=== PATIENT | female | born 1960 | race African-American/Black ===

== ENCOUNTER 2016-12-24 11:57 | Emergency (ER) | payer MEDICARE, OTHER ==
[~2016-12-24] VITALS: Ht 152.4 cm; Wt 72.6 kg
[~2016-12-24 11:57] MED LIST: GABA600T2 PO; HYDR-2762 PO; INSU100I13 SQ; INSU100I17 SQ; LORA10TA3 PO; METF10002 PO; METO50TA2 PO; PRAV20TA2 PO; PROAIR HFA8.5 GM INH; TRAM50TA PO; VENTOLIN HFA18 GM INH
[2016-12-24 12:40] VITALS: BP 158/114
[2016-12-24] MEDS ORDERED: DIPHTH,PERTUSS(ACELL),TET TOX 0.5 ML DISP.SYRIN. VAX IM ONE (13:00)
[2016-12-24] MEDS ORDERED: CEPH-264 PO (13:05)
--- NOTE | 2016-12-24 13:05 | PHYS DOC ---
Past Medical History Past Medical History: Asthma, Diabetes-Type II, High Cholesterol, Hypertension Past Surgical History: Alcohol Use: None Drug Use: None Adult General Chief Complaint Chief Complaint: LACERATION/AVULSION HPI HPI Patient is a 56 year old female presents emergency department stating that she had cut her right great toe on a piece of metal while getting into the truck yesterday. Patient states she had her shoe on and it cut through the shoe. She states that it did bleed a little bit of the time. There is no bleeding at this time. There is no drainage or discharge. The laceration appears very superficial that it was almost difficulty to find the area. Patient states she is having some numbness in her toe. Patient does states she is an insulin- dependent diabetic. She denies any history of neuropathy at this time. Patient states she has not taken anything for pain and discomfort. She is unsure when her last tetanus immunization occurred. Review of Systems Review of Systems Constitutional: Denies fever or chills [] Eyes: Denies change in visual acuity, redness, or eye pain [] HENT: Denies nasal congestion or sore throat [] Respiratory: Denies cough or shortness of breath [] Cardiovascular: No additional information not addressed in HPI [] GI: Denies abdominal pain, nausea, vomiting, bloody stools or diarrhea [] : Denies dysuria or hematuria [] Musculoskeletal: Denies back pain or joint pain [] Integument: Denies rash or skin lesions. Cut the right great toe Neurologic: Denies headache, focal weakness or sensory changes [] Current Medications Current Medications Current Medications Medications (Trade) Dose Ordered Sig/Palmer Start Time Stop Time Status Last Admin Dose Admin Diphtheria/ Tetanus/Acell Pertussis (Boostrix) 0.5 ml ONCE ONCE 12/24/16 13:00 12/24/16 13:01 Allergies Allergies Allergies Coded Allergies Type Severity Reaction Last Updated Verified ibuprofen Allergy Intermediate rash 01/25/15 Yes Physical Exam Physical Exam Constitutional: Well developed, well nourished, no acute distress, non-toxic appearance. [] HENT: Normocephalic, atraumatic, bilateral external ears normal, oropharynx moist, no oral exudates, nose normal. [] Eyes: PERRLA, EOMI, conjunctiva normal, no discharge. [] Neck: Normal range of motion, no tenderness, supple, no stridor. [] Cardiovascular:Heart rate regular rhythm, no murmur [] Lungs & Thorax: Bilateral breath sounds clear to auscultation [] Skin: Warm, dry, no erythema, no rash. Patient with very superficial abrasion to the right lateral great toe. No drainage or discharge noted. Patient with good sensation. Cap refill brisk less than 2 seconds. Back: No tenderness Extremities: No tenderness, no cyanosis, no clubbing, ROM intact, no edema. [] Neurologic: Alert and oriented X 3, normal motor function, normal sensory function, no focal deficits noted. [] Psychologic: Affect normal, judgement normal, mood normal. [] EKG EKG [] Radiology/Procedures Radiology/Procedures [] Course & Med Decision Making Course & Med Decision Making Pertinent Labs and Imaging studies reviewed. (See chart for details) Patient was instructed to use soap and water to clean the area and apply antibiotic ointment as needed. Also recommended ice packs elevation as much as possible. Patient will be placed on some Keflex. Recommended following up with a primary care physician in the next 3-5 days. Also provided patient with information on diabetic foot care. Patient will be discharged home in stable condition since symptoms to return back to emergency department was also provided. Patient's tetanus immunization was updated here as well. Patient agrees with discharge instructions treatment regimens and follow-up recommendations. [] Dragon Disclaimer Dragon Disclaimer This electronic medical record was generated, in whole or in part, using a voice recognition dictation system. Departure Departure Impression: Primary Impression: Abrasion of right great toe Disposition: HOME, SELF-CARE Condition: STABLE Referrals: UNKNOWN PCP NAME (PCP) Patient Instructions: Abrasion, [id number], Diabetes and Foot Care Additional Instructions: Activity as tolerated. Medication as prescribed. Tylenol for pain and discomfort Ice packs on 20 minutes off 20 minutes Elevation as much as possible. Wash the site with soap and water 2-3 times a day replace antibiotic ointment as needed. Follow-up to primary care physician next 3-5 days. Return to emergency department for signs and symptoms that become worse. Scripts Cephalexin (Keflex)500 Mg Capsule1 Cap PO BID #14 CAP Prov:LIDA PEACE NP 12/24/16 LIDA PEACE NP Dec 24, 2016 13:05
== END 2016-12-24 13:37 | disposition home or self-care (01) ==
LOC: ER 11:57
DX: S90.411A Abrasion, right great toe, initial encounter (principal); E11.9 Type 2 diabetes mellitus without complications; E78.00 Pure hypercholesterolemia, unspecified; I10 Essential (primary) hypertension; J45.909 Unspecified asthma, uncomplicated; Z79.4 Long term (current) use of insulin; Z88.6 Allergy status to analgesic agent; Y28.8XXA Contact with other sharp object, undetermined intent, initial encounter; Y93.89 Activity, other specified; Y99.8 Other external cause status; Y92.89 Other specified places as the place of occurrence of the external cause
CPT/HCPCS: 90471; 90715; 99283-25

== ENCOUNTER 2019-10-09 15:33 | Emergency (ER) | payer OTHER, MEDICAID ==
[~2019-10-09] VITALS: Ht 152.4 cm; Wt 72.6 kg
[~2019-10-09 15:33] MED LIST changes: +ALBU2.5V8 INH; +CEPH-264 PO; -GABA600T2 PO; +GABA600T7 PO; -HYDR-2762 PO; +HYDR-2765 PO; -METF10002 PO; +METF10007 PO; -METO50TA2 PO; +METO50TA6 PO; -PROAIR HFA8.5 GM INH
[2019-10-09 15:48] VITALS: BP 166/71
[2019-10-09] MEDS ORDERED: MUPI22OI2 TP (17:24)
[2019-10-09] MEDS ORDERED: HYDR-2761 PO (17:24)
[2019-10-09] MEDS ORDERED: CEPH500C PO (17:24)
--- NOTE | 2019-10-09 17:25 | PHYS DOC ---
Past Medical History Past Medical History: Asthma, Diabetes-Type II, High Cholesterol, Hypertension Past Surgical History: No Surgical History, Alcohol Use: None Drug Use: None Adult General Chief Complaint Chief Complaint: INSECT BITE HPI HPI Patient is a 59 year old AA male who presents to the emergency department with complaints of a sore to her lower left abdomen for the last 3 days. Patient states she thinks it is a spider bite at first there was just red but then today the redness grew in there was bloody pus that drained from the center of the red area. Patient denies any itching states that she has felt feverish, fatigued, and achy with the onset of the symptoms. Patient denies any cough, shortness of breath, wheezing, chest pain, palpitations, fever, vomiting, or diarrhea. Patient states she has felt nauseated with the discomfort. Currently she rates her pain 8 out of 10 on the pain scale, there are no alleviating factors, pain increases with palpation. All other ROS is neg unless otherwise noted in HPI. Review of Systems Review of Systems See Above Allergies Allergies Allergies Coded Allergies Type Severity Reaction Last Updated Verified ibuprofen Allergy Intermediate rash 01/25/15 Yes Physical Exam Physical Exam See Above Constitutional: Well developed, well nourished, no acute distress, non-toxic appearance. [] HENT: Normocephalic, atraumatic, bilateral external ears normal, oropharynx moist, no oral exudates, nose normal. [] Eyes: PERRLA, EOMI, conjunctiva normal, no discharge. [] Neck: Normal range of motion, no stridor. [] Cardiovascular:Heart rate regular rhythm Lungs & Thorax: Bilateral breath sounds clear to auscultation, verbalized an understanding of home care, medications, follow-up, and return to ED instructions and was in agreement with the plan of care. [] Abdomen: soft, LLQ tenderness at abscess site, no masses, no pulsatile masses. [] Skin: Warm, dry, no rash; 3 cm diameter area of erythema with central open area, no fluctuance, area is tender and warm Extremities: No cyanosis, ROM intact, no edema. [] Neurologic: Alert and oriented X 3, no focal deficits noted. [] Psychologic: Affect normal, judgement normal, mood normal. [] Current Patient Data Vital Signs Vital Signs Date Time Temp Pulse Resp B/P (MAP) Pulse Ox O2 Delivery O2 Flow Rate FiO2 10/09/19 15:48 97.8 68 16 166/71 (102) 99 Room Air 97.8 EKG EKG [] Radiology/Procedures Radiology/Procedures [] Course & Med Decision Making Course & Med Decision Making Pertinent Labs and Imaging studies reviewed. (See chart for details) [] Dragon Disclaimer Dragon Disclaimer This electronic medical record was generated, in whole or in part, using a voice recognition dictation system. Departure Departure Impression: Primary Impression: Cutaneous abscess of abdominal wall Disposition: HOME, SELF-CARE Condition: LEFT WITHOUT BEING SEEN Referrals: UNKNOWN PCP NAME (PCP) Patient Instructions: Abscess, [id number] Additional Instructions: Fill the prescription(s) and use as directed. You may take tylenol or ibuprofen as needed for pain. Leave the Dressing that was placed in the ER in place for the next 24 hours, then change the dressing 3x daily and apply antibiotic ointment as prescribed. You may apply warm, moist packs to the area to help decrease discomfort. Follow up with your primary care doctor or return to the ER in 48 hours to have wound rechecked. Return to the ER sooner if your symptoms worsen. Scripts Hydrocodone Bit/Acetaminophen (HYDROCODONE-APAP 5-325 ) 1 Tab Tablet 1 TAB PO PRN Q6HRS PRN for PAIN for 1 Day, #4 TAB 0 Refills Prov: CARROLL SHARP RECONCILIATION ANALYST 10/09/19 Mupirocin (MUPIROCIN OINTMENT) 22 Gm Oint...g. 1 MICHAEL TP TID for WOUND CARE for 7 Days, #1 TUBE 0 Refills Prov: CARROLL SHARP RECONCILIATION ANALYST 10/09/19 Cephalexin (CEPHALEXIN) 500 Mg Capsule 1 CAP PO QID for 7 Days, #28 CAP 0 Refills Prov: CARROLL SHARP RECONCILIATION ANALYST 10/09/19 CARROLL SHARP RECONCILIATION ANALYST Oct 09, 2019 17:25
[2019-10-09] MEDS ORDERED: NEOMY/BACITR/POLYMYXIN OINT PACKET. TP ONE (17:30)
== END 2019-10-09 17:33 | disposition home or self-care (01) ==
LOC: ER 15:33
DX: L02.211 Cutaneous abscess of abdominal wall (principal); J45.909 Unspecified asthma, uncomplicated; E11.9 Type 2 diabetes mellitus without complications; E78.00 Pure hypercholesterolemia, unspecified; I10 Essential (primary) hypertension; Z98.890 Other specified postprocedural states; Z88.6 Allergy status to analgesic agent
CPT/HCPCS: 99283

== ENCOUNTER 2019-12-11 11:09 | Emergency (ER) | payer OTHER, MEDICAID ==
[~2019-12-11] VITALS: Ht 152.4 cm; Wt 77.2 kg
[~2019-12-11 11:09] MED LIST changes: +CEPH500C PO; +HYDR-2761 PO; +MUPI22OI2 TP
[2019-12-11 11:34] VITALS: BP 140/63
[2019-12-11 11:47] LABS: BILIRUBIN,URINE NEGATIVE (NEG); CLARITY,URINE CLEAR; COLOR,URINE YELLOW; NITRITE,URINE NEGATIVE (NEG); PH,URINE 5.5; PROTEIN,URINE NEGATIVE (NEG-TRACE)
[2019-12-11 12:04] LABS: BACTERIA,URINE 0 /HPF (0-FEW); RBC,URINE RARE /HPF (0-2); SQUAMOUS EPITHELIAL CELL,UR MOD /LPF
--- NOTE | 2019-12-11 12:56 | PHYS DOC ---
Past Medical History Past Medical History: Asthma, Diabetes-Type II, High Cholesterol, Hypertension Past Surgical History: No Surgical History, Smoking Status: Current Every Day Smoker Alcohol Use: None Drug Use: None Adult General Chief Complaint Chief Complaint: VAGINAL PROBLEM HPI HPI Patient is a 59 year old female who presents with vaginal itching, white discharge for the last 3 days. Patient also has 2 days of nasal congestion, cough, body aches, fever. Patient states she also has a abscess to her labia. Review of Systems Review of Systems Constitutional: fever or chills [] HENT: nasal congestion or sore throat [] Respiratory: cough or denies shortness of breath [] : Vaginal discharge. Denies dysuria or hematuria [] Integument: Abscess to vaginal. enies rash or skin lesions [] All other systems were reviewed and found to be within normal limits, except as documented in this note. Allergies Allergies Allergies Coded Allergies Type Severity Reaction Last Updated Verified ibuprofen Allergy Intermediate rash 01/25/15 Yes Physical Exam Physical Exam Constitutional: Well developed, well nourished, no acute distress, non-toxic appearance. [] HENT: Normocephalic, atraumatic, bilateral external ears normal, oropharynx moist, no oral exudates, nose normal. Throat reddened without exudates or swelling. [] Eyes: PERRLA, EOMI, conjunctiva normal, no discharge. [] Neck: Normal range of motion, no tenderness, supple, no stridor. [] Cardiovascular:Heart rate regular rhythm, no murmur [] Lungs & Thorax: Bilateral breath sounds clear to auscultation [] Abdomen: Bowel sounds normal, soft, no tenderness, no masses, no pulsatile masses. [] Skin: Warm, dry, no erythema, no rash. [] Back: No tenderness, no CVA tenderness. [] Extremities: No tenderness, no cyanosis, no clubbing, ROM intact, no edema. [] Neurologic: Alert and oriented X 3, normal motor function, normal sensory function, no focal deficits noted. [] Psychologic: Affect normal, judgement normal, mood normal. [] Current Patient Data Vital Signs Vital Signs Date Time Temp Pulse Resp B/P (MAP) Pulse Ox O2 Delivery O2 Flow Rate FiO2 12/11/19 11:34 98.4 84 16 140/63 (88) 97 Room Air 98.4 Lab Values Laboratory Tests Test 12/11/19 11:25 12/11/19 12:13 Urine Collection Type Unknown Urine Color Yellow Urine Clarity Clear Urine pH 5.5 Urine Specific [place] >=1.030 Urine Protein Negative mg/dL (NEG-TRACE) Urine Glucose (UA) >=1000 mg/dL (NEG) Urine Ketones (Stick) Negative mg/dL (NEG) Urine Blood Negative (NEG) Urine Nitrite Negative (NEG) Urine Bilirubin Negative (NEG) Urine Urobilinogen Dipstick 1.0 mg/dL (0.2 mg/dL) Urine Leukocyte Esterase Small (NEG) Urine RBC Rare /HPF (0-2) Urine WBC 1-4 /HPF (0-4) Urine Squamous Epithelial Cells Mod /LPF Urine Bacteria 0 /HPF (0-FEW) Influenza Type A Antigen Negative (NEGATIVE) Influenza Type B Antigen Negative (NEGATIVE) Microbiology 12/11/19 Wet Prep - Final, Complete EKG EKG [] Radiology/Procedures Radiology/Procedures [] Course & Med Decision Making Course & Med Decision Making Pertinent Labs and Imaging studies reviewed. (See chart for details) Patient is positive for Trichomonas and bacterial vaginosis. Patient refuses treatment for Chlamydia gonorrhea at this time. Abdomen soft and nontender. Afebrile vital signs are within normal limits. Ambulatory with a steady gait. Skin pink warm and dry. Speaks in full clear sentences. Bilateral tympanic skin are white. Throat is reddened but there is no swelling or exudates. Lungs are clear to auscultation all lobes. Upon examination patient does have a epidermal cyst to the upper back thigh that is raised 1cm and 1 cm wide. No redness or cellulitis. Rapid flu negative. Patient is treated for Trichomonas and bacterial vaginosis with Flagyl. Pelvic Exam: Textile Conversion Manager present Abdomen: Nontender External Genitalia: Normal Skin, No vaginal abscess is seen Speculum: Normal vaginal mucosa, White cervical discharge Bimanual: No adnexal masses or tenderness, No CMT [] Dragon Disclaimer Dragon Disclaimer This electronic medical record was generated, in whole or in part, using a voice recognition dictation system. Departure Departure Impression: Primary Impression: Trichomoniasis Additional Impressions: Bacterial vaginosis Upper respiratory infection Disposition: HOME, SELF-CARE Condition: STABLE Referrals: UNKNOWN PCP NAME (PCP) THIAGO ERNST Jr, MD Patient Instructions: Bacterial Vaginosis, Trichomoniasis-Brief Additional Instructions: Drink plenty of fluids. Take [id number] cold and flu medications. Follow up with gynecology as needed. Take medication with food and as prescribed. Scripts Metronidazole (METRONIDAZOLE) 500 Mg Tablet 1 TAB PO BID for 7 Days, #14 TAB 0 Refills Prov: LIDA RAYMOND APRN 12/11/19 Benzonatate (TESSALON PERLE) 100 Mg Capsule 1 CAP PO TID, #30 CAP Prov: LIDA RAYMOND APRN 12/11/19 Azithromycin (AZITHROMYCIN TABLET) 250 Mg Tablet 1 PKG PO UD for 5 Days, #6 TAB 0 Refills 2 the first day followed by 1 for days 2-5 Prov: LIDA RAYMOND APRN 12/11/19 Problem Qualifiers Additional Impressions: Upper respiratory infection URI type: unspecified URI Qualified Codes: J06.9 - Acute upper respiratory infection, unspecified LIDA RAYMOND APRN Dec 11, 2019 12:56
[2019-12-11 12:57] LABS: INFLUENZA A PATIENT NEGATIVE (NEGATIVE); INFLUENZA B PATIENT NEGATIVE (NEGATIVE)
[2019-12-11] MEDS ORDERED: AZIT250T6 PO (13:13)
[2019-12-11] MEDS ORDERED: METR-34 PO (13:13)
[2019-12-11] MEDS ORDERED: BENZ100C PO (13:13)
[2019-12-14 19:09] LABS: GC PROBE Negative (Negative)
== END 2019-12-11 13:20 | disposition home or self-care (01) ==
LOC: ER 11:09
DX: N76.0 Acute vaginitis (principal); B96.89 Other specified bacterial agents as the cause of diseases classified elsewhere; J06.9 Acute upper respiratory infection, unspecified; J45.909 Unspecified asthma, uncomplicated; E78.00 Pure hypercholesterolemia, unspecified; I10 Essential (primary) hypertension; E11.9 Type 2 diabetes mellitus without complications; F17.200 Nicotine dependence, unspecified, uncomplicated; Z88.2 Allergy status to sulfonamides
CPT/HCPCS: 36415; 81001; 87086; 87491; 87591; 87804; 99284; Q0111

== ENCOUNTER 2020-01-16 13:12 | Emergency (ER) | payer OTHER, MEDICAID ==
[~2020-01-16] VITALS: Ht 152.4 cm; Wt 76.2 kg
[~2020-01-16 13:12] MED LIST changes: +AZIT250T6 PO; +BENZ100C PO; +METR-34 PO
[2020-01-16 13:18] VITALS: BP 140/74
[2020-01-16 13:48] LABS: BILIRUBIN,URINE NEGATIVE (NEG); CLARITY,URINE CLEAR; COLOR,URINE YELLOW; NITRITE,URINE NEGATIVE (NEG); PROTEIN,URINE NEGATIVE (NEG-TRACE)
[2020-01-16 13:56] LABS: SQUAMOUS EPITHELIAL CELL,UR FEW /LPF
[2020-01-16 13:57] LABS: BACTERIA,URINE 0 /HPF (0-FEW)
[2020-01-16] MEDS ORDERED: cefTRIAXone IM 250 MG VIAL IM ONE ×2 (14:00)
[2020-01-16] MEDS ORDERED: metroNIDAZOLE 500 MG TABLET PO ONE (14:00)
[2020-01-16] MEDS ORDERED: AZITHROMYCIN 250 MG TABLET. PO ONE (14:00)
--- NOTE | 2020-01-16 14:12 | PHYS DOC ---
Past Medical History Past Medical History: Asthma, Bronchitis, Diabetes-Type II, High Cholesterol, Hypertension Past Surgical History: Smoking Status: Former Smoker Alcohol Use: None Drug Use: None Adult General Chief Complaint Chief Complaint: PAIN ON URINATION HPI HPI Patient is a 59 year old female who presents the ED today complaining of dysuria and vaginal itching that began a couple days ago after having unprotected sex with a man. Patient reports the last time she had unprotected sex with the same man she had an STD. She believes she has one right now would like to be tested and treated. She is in the ED with a male partner arguing Review of Systems Review of Systems Constitutional: Denies fever or chills [] : Reports dysuria and concern for STDs. Denies dysuria Musculoskeletal: Denies back pain or joint pain [] Integument: Denies rash or skin lesions [] Neurologic: Denies headache, focal weakness or sensory changes [] All other systems were reviewed and found to be within normal limits, except as documented in this note. Current Medications Current Medications Current Medications Medications (Trade) Dose Ordered Sig/Palmer Start Time Stop Time Status Last Admin Dose Admin Azithromycin (Zithromax) 1,000 mg 1X ONCE 01/16/20 14:00 01/16/20 14:01 DC 01/16/20 14:04 1,000 MG Ceftriaxone Sodium (Rocephin Im) 250 mg 1X ONCE 01/16/20 14:00 01/16/20 14:01 UNV Metronidazole (Flagyl) 2,000 mg 1X ONCE 01/16/20 14:00 01/16/20 14:01 DC 01/16/20 14:04 2,000 MG Allergies Allergies Allergies Coded Allergies Type Severity Reaction Last Updated Verified ibuprofen Allergy Intermediate rash 01/25/15 Yes Physical Exam Physical Exam Constitutional: Well developed, well nourished, no acute distress, non-toxic appearance. [] Abdomen: Bowel sounds normal, soft, no tenderness, no masses, no pulsatile masses. [] Skin: Warm, dry, no erythema, no rash. [] Back: No tenderness, no CVA tenderness. [] Extremities: No tenderness, no cyanosis, no clubbing, ROM intact, no edema. [] Neurologic: Alert and oriented X 3, normal motor function, normal sensory function, no focal deficits noted. [] Psychologic: Affect normal, judgement normal, mood normal. [] Current Patient Data Vital Signs Vital Signs Date Time Temp Pulse Resp B/P (MAP) Pulse Ox O2 Delivery O2 Flow Rate FiO2 01/16/20 13:18 94.0 94 17 140/74 (96) 98 Room Air 94.0 Lab Values Laboratory Tests Test 01/16/20 13:36 Urine Collection Type Unknown Urine Color Yellow Urine Clarity Clear Urine pH 6.0 (<5.0-8.0) Urine Specific [place] >=1.030 (1.000-1.030) Urine Protein Negative mg/dL (NEG-TRACE) Urine Glucose (UA) >=1000 mg/dL (NEG) Urine Ketones (Stick) Negative mg/dL (NEG) Urine Blood Negative (NEG) Urine Nitrite Negative (NEG) Urine Bilirubin Negative (NEG) Urine Urobilinogen Dipstick 1.0 mg/dL (0.2 mg/dL) Urine Leukocyte Esterase Negative (NEG) Urine RBC 3-5 /HPF (0-2) Urine WBC 1-4 /HPF (0-4) Urine Squamous Epithelial Cells Few /LPF Urine Bacteria 0 /HPF (0-FEW) Urine Mucus Mod /LPF EKG EKG [] Radiology/Procedures Radiology/Procedures [] Course & Med Decision Making Course & Med Decision Making Pertinent Labs and Imaging studies reviewed. (See chart for details) This is a 59-year-old female patient presenting to the ED today with concern for STDs. Patient was treated. Education provided. Discharged home Dragon Disclaimer Dragon Disclaimer This electronic medical record was generated, in whole or in part, using a voice recognition dictation system. Departure Departure Impression: Primary Impression: Concern about STD in female without diagnosis Disposition: 01 HOME, SELF-CARE Condition: STABLE Referrals: UNKNOWN PCP NAME (PCP) follow up with your doctor in 1-2 weeks Patient Instructions: Sexually Transmitted Disease, [id number] Additional Instructions: You were treated for sexually transmitted diseases. Use protection at all times. Follow-up with the health department for further STD concerns. MONICA LANE APRN Jan 16, 2020 14:11
== END 2020-01-16 14:19 | disposition home or self-care (01) ==
LOC: ER 13:12
DX: Z20.2 Contact with and (suspected) exposure to infections with a predominantly sexual mode of transmission (principal); J45.909 Unspecified asthma, uncomplicated; E11.9 Type 2 diabetes mellitus without complications; E78.00 Pure hypercholesterolemia, unspecified; I10 Essential (primary) hypertension; Z87.891 Personal history of nicotine dependence; Z88.8 Allergy status to other drugs, medicaments and biological substances
CPT/HCPCS: 81001; 87491; 87591; 96372; 99283; J0696

== ENCOUNTER 2020-02-27 14:22 | Emergency (ER) | payer MEDICARE, MEDICAID ==
[~2020-02-27] VITALS: Ht 152.4 cm; Wt 73.0 kg
[2020-02-27 14:30] VITALS: BP 145/93
--- NOTE | 2020-02-27 15:13 | PHYS DOC ---
Past Medical History Past Medical History: Diabetes-Type II, High Cholesterol, Hypertension Past Surgical History: Smoking Status: Current Every Day Smoker Alcohol Use: None Drug Use: None General Adult EDM: Chief Complaint: PELVIC PAIN HPI: HPI: Patient is a 59 year old female who presents with 1 week of vaginal itching and abnormal discharge. She states she does have concerns for sexually transmitted diseases. She states that when she urinates it does burn. Patient denies abdominal pain, nausea, vomiting, diarrhea, fever, flank pain, bodyaches, hematuria. Review of Systems: Review of Systems: : dysuria, vaginal itching and buring, discharge. [] Heart Score: Risk Factors: Risk Factors: DM, Current or recent (<one month) smoker, HTN, HLP, family history of CAD, obesity. Risk Scores: Score 0 - 3: 2.5% MACE over next 6 weeks - Discharge Home Score 4 - 6: 20.3% MACE over next 6 weeks - Admit for Clinical Observation Score 7 - 10: 72.7% MACE over next 6 weeks - Early Invasive Strategies Allergies: Allergies: Allergies Coded Allergies Type Severity Reaction Last Updated Verified ibuprofen Allergy Intermediate rash 01/25/15 Yes Physical Exam: PE: Constitutional: Well developed, well nourished, no acute distress, non-toxic appearance. [] HENT: Normocephalic, atraumatic, bilateral external ears normal, oropharynx moist, no oral exudates, nose normal. [] Eyes: PERRLA, EOMI, conjunctiva normal, no discharge. [] Neck: Normal range of motion, no tenderness, supple, no stridor. [] Cardiovascular:Heart rate regular rhythm, no murmur [] Lungs & Thorax: Bilateral breath sounds clear to auscultation [] Abdomen: Bowel sounds normal, soft, no tenderness, no masses, no pulsatile masses. [] Skin: Warm, dry, no erythema, no rash. [] Back: No tenderness, no CVA tenderness. [] Extremities: No tenderness, no cyanosis, no clubbing, ROM intact, no edema. [] Neurologic: Alert and oriented X 3, normal motor function, normal sensory function, no focal deficits noted. [] Psychologic: Affect normal, judgement normal, mood normal. Normal Physical Exam[] Current Patient Data: Vital Signs: Vital Signs Date Time Temp Pulse Resp B/P (MAP) Pulse Ox O2 Delivery O2 Flow Rate FiO2 02/27/20 14:30 98.7 12 145/93 (110) 96 Room Air 98.7 EKG: EKG: [] Radiology/Procedures: Radiology/Procedures: [] Course & Med Decision Making: Course & Med Decision Making Pertinent Labs and Imaging studies reviewed. (See chart for details) Patient is treated with azithromycin and Rocephin in the ED. She is educated that she will only be called in 48 hours if her results are positive. Pelvic Exam: Net Application Support Specialist present Abdomen: Nontender External Genitalia: Normal Skin Speculum: Normal vaginal mucosa, yellow green cervical discharge Bimanual: No adnexal masses or tenderness, No CMT [] Dragon Disclaimer: Dragon Disclaimer: This electronic medical record was generated, in whole or in part, using a voice recognition dictation system. Departure Departure Impression: Primary Impression: Concern about STD in female without diagnosis Additional Impression: Yeast infection Disposition: HOME, SELF-CARE Condition: STABLE Referrals: UNKNOWN PCP NAME (PCP) Patient Instructions: Yeast Infection of the Skin, [id number] Additional Instructions: Use medication as prescribed. Follow up with your primary care provider or a supervising chef if symptoms persist. You will be called in 48 hours only if your results are positive. Scripts Miconazole Nitrate (MONISTAT 3) 15 Gm Crm.pf.vikas 1 APPFUL VG QHS for 3 Days, #15 GM 0 Refills Prov: LIDA RAYMOND APRN 02/27/20 LIDA RAYMOND APRN Feb 27, 2020 15:13
[2020-02-27] MEDS ORDERED: cefTRIAXone IM 250 MG VIAL IM ONE (15:15)
[2020-02-27] MEDS ORDERED: AZITHROMYCIN 250 MG TABLET. PO ONE (15:15)
[2020-02-27 15:16] LABS: BILIRUBIN,URINE NEGATIVE (NEG); CLARITY,URINE CLEAR; COLOR,URINE YELLOW; NITRITE,URINE NEGATIVE (NEG); PROTEIN,URINE NEGATIVE (NEG-TRACE); UROBILINOGEN,URINE 0.2 mg/dL (0.2 mg/dL)
[2020-02-27 15:23] LABS: BACTERIA,URINE 0 /HPF (0-FEW); RBC,URINE OCC /HPF (0-2); SQUAMOUS EPITHELIAL CELL,UR MOD /LPF
[2020-02-27 15:24] LABS: YEAST,URINE PRESENT /HPF
[2020-02-27] MEDS ORDERED: NYST15CR2 TP (15:40)
[2020-02-27] MEDS ORDERED: FLUC150T PO (15:40)
[2020-02-27] MEDS ORDERED: MICO15CR7 VG (15:42)
[2020-02-29 16:09] LABS: GC PROBE Negative (Negative)
== END 2020-02-27 16:04 | disposition home or self-care (01) ==
LOC: ER 14:22
DX: Z20.2 Contact with and (suspected) exposure to infections with a predominantly sexual mode of transmission (principal); B37.3 Candidiasis of vulva and vagina; E11.9 Type 2 diabetes mellitus without complications; I10 Essential (primary) hypertension; E78.00 Pure hypercholesterolemia, unspecified; F17.200 Nicotine dependence, unspecified, uncomplicated; Z88.8 Allergy status to other drugs, medicaments and biological substances
CPT/HCPCS: 81001; 87086; 87491; 87591; 96372; 99284; J0696; Q0111

== ENCOUNTER 2020-03-19 14:05 | Emergency (ER) | payer OTHER, MEDICAID ==
[~2020-03-19] VITALS: Ht 152.4 cm; Wt 75.0 kg
[~2020-03-19 14:05] MED LIST changes: +FLUC150T PO; +MICO15CR7 VG; +NYST15CR2 TP
[2020-03-19 14:20] VITALS: BP 176/77
[2020-03-19 14:35] LABS: BILIRUBIN,URINE SMALL (NEG); CLARITY,URINE CLEAR; COLOR,URINE YELLOW; NITRITE,URINE NEGATIVE (NEG); PH,URINE 6.5 (<5.0-8.0); PROTEIN,URINE 100 mg/dL (NEG-TRACE)
[2020-03-19 14:41] LABS: BACTERIA,URINE FEW /HPF (0-FEW); RBC,URINE RARE /HPF (0-2); SQUAMOUS EPITHELIAL CELL,UR MANY /LPF
[2020-03-19] MEDS ORDERED: FLUCONAZOLE 100 MG TABLET. PO ONE (15:15)
[2020-03-19] MEDS ORDERED: cefTRIAXone IM 250 MG VIAL IM ONE (15:15)
[2020-03-19] MEDS ORDERED: AZITHROMYCIN 250 MG TABLET. PO ONE (15:15)
[2020-03-19] MEDS ORDERED: MICO113C TP (15:37)
[2020-03-19] MEDS ORDERED: METR500T PO (15:37)
--- NOTE | 2020-03-19 15:37 | PHYS DOC ---
Past Medical History Past Medical History: Asthma, Bronchitis, Diabetes-Type II, High Cholesterol, Hypertension Past Surgical History: Smoking Status: Current Some Day Smoker Alcohol Use: None Drug Use: None General Adult EDM: Chief Complaint: VAGINAL PROBLEM HPI: HPI: Patient is a 59 year old female who presented to ER today wanting to be treated for STD. Patient just wanted to have the medication, she does not want to be examined. Patient also says she had vaginal itching, she knows she has yeast infection, she wanted medication for that as well. Patient denies any abdominal pain, no fever. Patient her sexual partner is out of her life. Review of Systems: Review of Systems: Constitutional: Denies fever or chills. [] Eyes: Denies change in visual acuity. [] HENT: Denies nasal congestion or sore throat. [] Respiratory: Denies cough or shortness of breath. [] Cardiovascular: Denies chest pain or edema. [] GI: Denies abdominal pain, nausea, vomiting, bloody stools or diarrhea. [] : Denies dysuria. Positive for vaginal itching Musculoskeletal: Denies back pain or joint pain. [] Integument: Denies rash. [] Neurologic: Denies headache, focal weakness or sensory changes. [] Endocrine: Denies polyuria or polydipsia. [] Lymphatic: Denies swollen glands. [] Psychiatric: Denies depression or anxiety. [] Heart Score: Risk Factors: Risk Factors: DM, Current or recent (<one month) smoker, HTN, HLP, family history of CAD, obesity. Risk Scores: Score 0 - 3: 2.5% MACE over next 6 weeks - Discharge Home Score 4 - 6: 20.3% MACE over next 6 weeks - Admit for Clinical Observation Score 7 - 10: 72.7% MACE over next 6 weeks - Early Invasive Strategies Current Medications: Current Medications Medications (Trade) Dose Ordered Sig/Palmer Start Time Stop Time Status Last Admin Dose Admin Azithromycin (Zithromax) 1,000 mg 1X ONCE 03/19/20 15:15 03/19/20 15:17 DC Ceftriaxone Sodium (Rocephin Im) 250 mg 1X ONCE 03/19/20 15:15 03/19/20 15:17 DC Fluconazole (Diflucan) 200 mg 1X ONCE 03/19/20 15:15 03/19/20 15:17 DC Allergies: Allergies: Allergies Coded Allergies Type Severity Reaction Last Updated Verified ibuprofen Allergy Intermediate rash 01/25/15 Yes Physical Exam: PE: Constitutional: Well developed, well nourished, no acute distress, non-toxic appearance. [] HENT: Normocephalic, atraumatic, bilateral external ears normal, oropharynx moist, no oral exudates, nose normal. [] Eyes: PERRLA, EOMI, conjunctiva normal, no discharge. [] Neck: Normal range of motion, no tenderness, supple, no stridor. [] Cardiovascular:Heart rate regular rhythm, no murmur [] Lungs & Thorax: Bilateral breath sounds clear to auscultation [] Abdomen: Bowel sounds normal, soft, no tenderness, no masses, no pulsatile masses. [] Skin: Warm, dry, no erythema, no rash. [] Back: No tenderness, no CVA tenderness. [] Extremities: No tenderness, no cyanosis, no clubbing, ROM intact, no edema. [] Neurologic: Alert and oriented X 3, normal motor function, normal sensory function, no focal deficits noted. [] Psychologic: Affect normal, judgement normal, mood normal. [] Current Patient Data: Labs: Laboratory Tests Test 03/19/20 14:25 Urine Collection Type Unknown Urine Color Yellow Urine Clarity Clear Urine pH 6.5 (<5.0-8.0) Urine Specific [place] >=1.030 (1.000-1.030) Urine Protein 100 mg/dL (NEG-TRACE) Urine Glucose (UA) 100 mg/dL (NEG) Urine Ketones (Stick) Negative mg/dL (NEG) Urine Blood Negative (NEG) Urine Nitrite Negative (NEG) Urine Bilirubin Small (NEG) Urine Urobilinogen Dipstick 1.0 mg/dL (0.2 mg/dL) Urine Leukocyte Esterase Trace (NEG) Urine RBC Rare /HPF (0-2) Urine WBC 11-20 /HPF (0-4) Urine Squamous Epithelial Cells Many /LPF Urine Bacteria Few /HPF (0-FEW) Urine Mucus Slight /LPF Vital Signs: Vital Signs Date Time Temp Pulse Resp B/P (MAP) Pulse Ox O2 Delivery O2 Flow Rate FiO2 03/19/20 14:20 97.9 52 20 176/77 (110) 98 Room Air 97.9 EKG: EKG: [] Radiology/Procedures: Radiology/Procedures: [] Course & Med Decision Making: Course & Med Decision Making Pertinent Labs and Imaging studies reviewed. (See chart for details) [] Ben Disclaimer: Ben Disclaimer: This electronic medical record was generated, in whole or in part, using a voice recognition dictation system. Departure Departure Impression: Primary Impression: Vaginitis Disposition: 01 HOME, SELF-CARE Condition: STABLE Referrals: UNKNOWN PCP NAME (PCP) Patient Instructions: Vaginitis, Nopo-xw-Hurd Scripts Miconazole Nitrate (ANTI-FUNGAL CREAM) 113 Gm Cream..g. 1 MICHAEL TP BID for 7 Days, #113 GM 0 Refills Prov: DELFINO NINO DO 03/19/20 Metronidazole (FLAGYL) 500 Mg Tablet 1 TAB PO BID, #14 TAB Prov: DELFINO NINO DO 03/19/20 DELFINO NINO DO March 19, 2020 15:37
== END 2020-03-19 15:45 | disposition home or self-care (01) ==
LOC: ER 14:05
DX: N76.0 Acute vaginitis (principal); J45.909 Unspecified asthma, uncomplicated; E11.9 Type 2 diabetes mellitus without complications; I10 Essential (primary) hypertension; E78.00 Pure hypercholesterolemia, unspecified; F17.200 Nicotine dependence, unspecified, uncomplicated; Z88.8 Allergy status to other drugs, medicaments and biological substances
CPT/HCPCS: 81001; 87086; 96372; 99283; J0696

== ENCOUNTER 2020-04-18 17:53 | Emergency (ER) | payer OTHER, MEDICAID ==
[~2020-04-18] VITALS: Ht 152.4 cm; Wt 75.0 kg
[~2020-04-18 17:53] MED LIST changes: +METR500T PO; +MICO113C TP
--- NOTE | 2020-04-18 19:00 | RAD ---
FOOT RIGHT 2V History: Reason: R/O FOREIGN BODY, STEPPED IN GLASS X2 DAYS AGO / Spl. Instructions: / History: Technique: 2 views right foot. Comparison: None. Findings: Normal alignment. No fracture. No radiopaque foreign body. Impression: 1. No radiopaque foreign body. Electronically signed by: Hakan Jiang DO (04/18/2020 6:56 PM) [facility]
[2020-04-18 19:15] LABS: BILIRUBIN,URINE NEGATIVE (NEG); CLARITY,URINE CLEAR; COLOR,URINE YELLOW; NITRITE,URINE NEGATIVE (NEG); PROTEIN,URINE NEGATIVE (NEG-TRACE)
[2020-04-18 19:25] LABS: BACTERIA,URINE FEW /HPF (0-FEW); SQUAMOUS EPITHELIAL CELL,UR FEW /LPF
[2020-04-18 19:26] LABS: RBC,URINE RARE /HPF (0-2)
--- NOTE | 2020-04-18 20:12 | RAD ---
TRANSVAGINAL History: Reason: L ADNEXAL ttp / Spl. Instructions: / History: Comparison: None. Technique: Grayscale and color Doppler imaging of the pelvis was performed using transvaginal technique. Findings: The uterus measures 1.3 x 8.4 x 7.1 cm. Large heterogeneous uterine mass eccentric to the left with mass effect on the endometrial canal. Endometrial thickness not well characterized measures approximately 3.7 mm. Bilateral ovaries not identified due to positioning and overlying structures. No adnexal masses are seen. IMPRESSION: 1. Large heterogeneous uterine mass, likely fibroid. 2. Bilateral ovaries not identified. Electronically signed by: Hakan Jiang DO (04/18/2020 8:09 PM) [facility]
[2020-04-18] MEDS ORDERED: cefTRIAXone IM 250 MG VIAL IM ONE (20:30)
[2020-04-18] MEDS ORDERED: AZITHROMYCIN 250 MG TABLET. PO ONE (20:30)
--- NOTE | 2020-04-18 20:50 | PHYS DOC ---
Past Medical History Past Medical History: Asthma, Bronchitis, Diabetes-Type II, High Cholesterol, Hypertension Past Surgical History: Smoking Status: Current Some Day Smoker Alcohol Use: None Drug Use: None General Adult EDM: Chief Complaint: FOOT INJURY PAIN HPI: HPI: Patient is a 59 year old AA female who presents to the emergency department with complaints of possible retained glass in the bottom of her right foot for t he last 2 to 3 days. Patient states she has been digging at the area with tweezers but has been unable to remove the glass. She also complains of vaginal itching and irregular vaginal discharge that began 3 weeks ago. Patient reports that she thinks she might have a sexually transmitted infection. She denies any abdominal pain, nausea, vomiting, diarrhea, dysuria, hematuria, difficulty urinating, or low back pain. The patient states that the vaginal discharge has a foul odor to it and she also complains of some pelvic discomfort. She denies any fever, cough, shortness of breath, ear pain, headache, or known exposure to COVID-19. She currently rates her pain a 5 out of 10 on the pain scale, she denies any alleviating factors, her foot pain increases if she bears weight. Review of Systems: Review of Systems: Constitutional: Denies fever or chills. [] Eyes: Denies change in visual acuity. [] HENT: Denies nasal congestion or sore throat. [] Respiratory: Denies cough or shortness of breath. [] Cardiovascular: Denies chest pain or edema. [] GI: Denies abdominal pain, nausea, vomiting, or diarrhea. [] : Denies dysuria; see HPI. [] Musculoskeletal: Denies back pain or joint pain. [] Integument: See HPI Neurologic: Denies headache, focal weakness or sensory changes. [] Endocrine: Denies polyuria or polydipsia. [] Lymphatic: Denies swollen glands. [] Psychiatric: Denies depression or anxiety. [] Heart Score: Risk Factors: Risk Factors: DM, Current or recent (<one month) smoker, HTN, HLP, family history of CAD, obesity. Risk Scores: Score 0 - 3: 2.5% MACE over next 6 weeks - Discharge Home Score 4 - 6: 20.3% MACE over next 6 weeks - Admit for Clinical Observation Score 7 - 10: 72.7% MACE over next 6 weeks - Early Invasive Strategies Current Medications: Current Medications Medications (Trade) Dose Ordered Sig/Palmer Start Time Stop Time Status Last Admin Dose Admin Azithromycin (Zithromax) 1,000 mg 1X ONCE 04/18/20 20:30 04/18/20 20:31 DC 04/18/20 20:13 1,000 MG Ceftriaxone Sodium (Rocephin Im) 250 mg 1X ONCE 04/18/20 20:30 04/18/20 20:31 DC 04/18/20 20:13 250 MG Allergies: Allergies: Allergies Coded Allergies Type Severity Reaction Last Updated Verified ibuprofen Allergy Intermediate rash 01/25/15 Yes Physical Exam: PE: Constitutional: Well developed, well nourished, no acute distress, non-toxic appearance. HENT: Normocephalic, atraumatic, bilateral external ears normal, nose normal. Eyes: PERRLA, EOMI, conjunctiva normal, no discharge. Neck: Normal range of motion, no stridor. Cardiovascular: Heart rate regular rhythm Lungs & Thorax: Respirations even and unlabored, no retractions, no respiratory distress Pelvic Exam: Netsuite Consultant present Lindsey ERT Abdomen: Nontender, soft External Genitalia: Normal Skin Speculum: Normal vaginal mucosa, creamy brown discharge present in vaginal vault, cervix is nonfriable Bimanual: No adnexal masses, left adnexal tenderness tenderness, No CMT Skin: Warm, dry, no erythema, no rash. Extremities: No cyanosis, ROM intact, no edema. Neurologic: Alert and oriented X 3, no focal deficits noted. Psychologic: Affect normal, judgement normal, mood normal. Current Patient Data: Labs: Laboratory Tests Test 04/18/20 18:23 Urine Collection Type Unknown Urine Color Yellow Urine Clarity Clear Urine pH 5.0 (<5.0-8.0) Urine Specific [place] >=1.030 (1.000-1.030) Urine Protein Negative mg/dL (NEG-TRACE) Urine Glucose (UA) >=1000 mg/dL (NEG) Urine Ketones (Stick) Negative mg/dL (NEG) Urine Blood Negative (NEG) Urine Nitrite Negative (NEG) Urine Bilirubin Negative (NEG) Urine Urobilinogen Dipstick 1.0 mg/dL (0.2 mg/dL) Urine Leukocyte Esterase Negative (NEG) Urine RBC Rare /HPF (0-2) Urine WBC 1-4 /HPF (0-4) Urine Squamous Epithelial Cells Few /LPF Urine Bacteria Few /HPF (0-FEW) Urine Mucus Slight /LPF Microbiology 04/18/20 Wet Prep - Final, Complete Vital Signs: Vital Signs Date Time Temp Pulse Resp B/P (MAP) Pulse Ox O2 Delivery O2 Flow Rate FiO2 04/18/20 18:33 97.9 67 16 171/89 (116) 97 Room Air 97.9 EKG: EKG: [] Radiology/Procedures: Radiology/Procedures: PROCEDURE: TRANSVAGINAL TRANSVAGINAL History: Reason: L ADNEXAL ttp / Spl. Instructions: / History: Comparison: None. Technique: Grayscale and color Doppler imaging of the pelvis was performed using transvaginal technique. Findings: The uterus measures 1.3 x 8.4 x 7.1 cm. Large heterogeneous uterine mass eccentric to the left with mass effect on the endometrial canal. Endometrial thickness not well characterized measures approximately 3.7 mm. Bilateral ovaries not identified due to positioning and overlying structures. No adnexal masses are seen. IMPRESSION: 1. Large heterogeneous uterine mass, likely fibroid. 2. Bilateral ovaries not identified.[] PROCEDURE: FOOT RIGHT 2V FOOT RIGHT 2V History: Reason: R/O FOREIGN BODY, STEPPED IN GLASS X2 DAYS AGO / Spl. Instructions: / History: Technique: 2 views right foot. Comparison: None. Findings: Normal alignment. No fracture. No radiopaque foreign body. Impression: 1. No radiopaque foreign body. Course & Med Decision Making: Course & Med Decision Making Pertinent Labs and Imaging studies reviewed. (See chart for details) Patient is a 59-year-old female who presented to the emergency department with multiple complaints. An x-ray of her right foot revealed no radiopaque foreign body. The patient is a diabetic. I recommended that if she continues to have pain in this area she follows up with a computer architect. Pelvic exam revealed left adnexal tenderness with purulent discharge present in the vaginal vault. Wet mount was negative for trichomonas or BV, suspect gonorrhea or chlamydia infection. UA revealed greater than 1000 glucose without ketones, 1-4 white blood cells, few bacteria Patient was treated prophylactically with 250 mg of IM Rocephin, and 1 g of PO Zithromax. Patient was instructed to avoid having intercourse until the results of gonorrhea and chlamydia testing are available, patient was notified that these results would not be available for 48 hours. If one or both of these tests is positive, patient needs to refrain from intercourse for approximately 1 week following the treatment of any current partners. Patient verbalized an understanding of home care, medications, follow-up, and return to ED instructions and was in agreement with the plan of care. [] Dragon Disclaimer: Dragon Disclaimer: This electronic medical record was generated, in whole or in part, using a voice recognition dictation system. Departure Departure Impression: Primary Impression: Contact with and (suspected) exposure to infections with a predominantly sexual mode of transmission Additional Impressions: Vaginal discharge Pain in right foot Pelvic pain Disposition: HOME, SELF-CARE Condition: STABLE Referrals: UNKNOWN PCP NAME (PCP) Patient Instructions: Foreign Body-Brief, Pelvic Pain, Female, [id number], Sexually Transmitted Disease, [id number] Additional Instructions: Follow-up with FIRE HAZARD INSPECTOR regarding your pelvic pain, ultrasound showed what is likely a uterine fibroid that is unchanged since your previous exam. You need to see a computer architect about ongoing concerns of your foot wound, there was no visible foreign body in your x-ray film today. You have been treated for a suspected gonorrhea and chlamydia. Avoid having intercourse until the results of gonorrhea and chlamydia testing are available, these results will not be available for 48 hours. If one or both of these tests is positive, you need to refrain from intercourse for approximately 1 week following the treatment of any current partners. Return to ER if symptoms worsen. Justicifation of Admission Dx: Justifications for Admission: Justification of Admission Dx: N/A CARROLL SHARP APRN Apr 18, 2020 20:49
[2020-04-18 20:55] VITALS: BP 165/82
[2020-04-20 20:08] LABS: GC PROBE Negative (Negative)
== END 2020-04-18 20:55 | disposition home or self-care (01) ==
LOC: ER 17:53
DX: N89.8 Other specified noninflammatory disorders of vagina (principal); M79.671 Pain in right foot; R10.2 Pelvic and perineal pain; L29.2 Pruritus vulvae; J45.909 Unspecified asthma, uncomplicated; E11.9 Type 2 diabetes mellitus without complications; E78.00 Pure hypercholesterolemia, unspecified; I10 Essential (primary) hypertension; F17.200 Nicotine dependence, unspecified, uncomplicated; Z88.6 Allergy status to analgesic agent
CPT/HCPCS: 73620; 76830; 81001; 87491; 87591; 96372; 99285; J0696; Q0111

== ENCOUNTER 2020-05-10 16:27 | Emergency (ER) | payer OTHER, MEDICAID ==
[~2020-05-10] VITALS: Ht 152.4 cm; Wt 75.0 kg
[2020-05-10] MEDS ORDERED: HYDROcodone/APAP 5/325MG 1 TAB TABLET PO ONE (18:15)
[2020-05-10 18:35] VITALS: BP 157/79
--- NOTE | 2020-05-10 19:00 | PHYS DOC ---
Past Medical History Past Medical History: Asthma, Bronchitis, Diabetes-Type II, High Cholesterol, Hypertension (RAMU CORTES APRN) Past Surgical History: (RAMU CORTES APRN) Smoking Status: Current Some Day Smoker Alcohol Use: None Drug Use: None (RAMU CORTES APRN) General Adult EDM: Chief Complaint: UPPER EXTREMITY PAIN HPI: HPI: Patient is a 59 year old female presents for evaluation of nontraumatic left arm pain. She reports yesterday she started having pain in the arm, it radiates from her shoulder down through her fingers. She has pain with any kind of movement of the arm. Denies chest pain or shortness of air. (RAMU CORTES APRN) Review of Systems: Review of Systems: Constitutional: Denies fever or chills. [] Eyes: Denies change in visual acuity. [] HENT: Denies nasal congestion or sore throat. [] Respiratory: Denies cough or shortness of breath. [] Cardiovascular: Denies chest pain or edema. [] GI: Denies abdominal pain, nausea, vomiting, bloody stools or diarrhea. [] : Denies dysuria. [] Musculoskeletal: Denies back pain or joint pain. [] Integument: Denies rash. [] Neurologic: Denies headache, focal weakness or sensory changes. [] Endocrine: Denies polyuria or polydipsia. [] Lymphatic: Denies swollen glands. [] Psychiatric: Denies depression or anxiety. [] (RAMU CORTES APRN) Heart Score: Risk Factors: Risk Factors: DM, Current or recent (<one month) smoker, HTN, HLP, family history of CAD, obesity. Risk Scores: Score 0 - 3: 2.5% MACE over next 6 weeks - Discharge Home Score 4 - 6: 20.3% MACE over next 6 weeks - Admit for Clinical Observation Score 7 - 10: 72.7% MACE over next 6 weeks - Early Invasive Strategies (RAMU CORTES APRN) Current Medications: Current Medications Medications (Trade) Dose Ordered Sig/Palmer Start Time Stop Time Status Last Admin Dose Admin Acetaminophen/ Hydrocodone Bitart (Lortab 5/325) 1 tab 1X ONCE 05/10/20 18:15 05/10/20 18:16 DC (RAMU CORTES APRN) Allergies: Allergies: Allergies Coded Allergies Type Severity Reaction Last Updated Verified ibuprofen Allergy Intermediate rash 01/25/15 Yes (RAMU CORTES APRN) Physical Exam: PE: Constitutional: Well developed, well nourished, no acute distress, non-toxic appearance. [] HENT: Normocephalic, atraumatic, bilateral external ears normal [] Eyes: PERRLA, EOMI, conjunctiva normal, no discharge. [] Neck: Normal range of motion, no tenderness, supple, no stridor. [] Cardiovascular:Heart rate regular rhythm, no murmur [] Lungs & Thorax: Bilateral breath sounds clear to auscultation [] Skin: Warm, dry, no erythema, no rash. [] Extremities: No tenderness, no cyanosis, no clubbing, left arm tender to palpation diffusely from shoulder down to hand, patient cries out in pain with range of motion to the shoulder, elbow or wrist joint of this extremity, no s welling or redness to indicate cellulitis [] Neurologic: Alert and oriented X 3, normal motor function, normal sensory function, no focal deficits noted. [] Psychologic: Affect normal, judgement normal, mood normal. [] (RAMU CORTES APRN) Current Patient Data: Vital Signs: Vital Signs Date Time Temp Pulse Resp B/P (MAP) Pulse Ox O2 Delivery O2 Flow Rate FiO2 05/10/20 18:35 97.6 69 18 157/79 (105) 96 Room Air 97.6 (RAMU CORTES APRN) EKG: EKG: [EKG rate 58, sinus rhythm, no STEMI or acute changes, reviewed by myself and emergency physician] (RAMU CORTES APRN) Radiology/Procedures: Radiology/Procedures: [] Impression: eft shoulder 3 views, left humerus 2 views. HISTORY: Pain Left shoulder 3 views were taken of the left shoulder. There is calcification adjacent to the greater tuberosity suggesting calcific tendinitis. There is no fracture or dislocation or other acute osseous abnormality. Left humerus 2 views the left humerus show no evidence of a fracture. There is no dislocation at the shoulder. IMPRESSION: 1. No fracture or dislocation left shoulder. 2. Calcific tendinitis. 3. No fracture noted in the left humerus. Electronically signed by: Beck Tovar MD (05/10/2020 7:14 PM) [facility] (RAMU CORTES APRN) Course & Med Decision Making: Course & Med Decision Making Pertinent Labs and Imaging studies reviewed. (See chart for details) [X-ray of left shoulder and humerus indicates no bony abnormality, there is calcified tendinitis noted on x-ray. Discussed findings with patient, have provided a sling for comfort and discussed using this only when she is awake and active, importance of taking the arm out of the sling and moving the joints. She reports has an appointment in 10 days with her primary care provider. We will give her prescription for prednisone. EKG normal sinus rhythm. Return to ER for new or worsening symptoms.] (RAMU CORTES APRN) Dragon Disclaimer: Ben Disclaimer: This electronic medical record was generated, in whole or in part, using a voice recognition dictation system. (RAMU CORTES APRN) Departure Departure Impression: Primary Impression: Tendinitis Disposition: 01 HOME, SELF-CARE Condition: STABLE Referrals: CHARLES BELLAMY (PCP) Patient Instructions: Calcific Tendinitis Scripts Prednisone (PREDNISONE) 50 Mg Tablet 1 TAB PO DAILY, #5 TAB Prov: RAMU CORTES APRN 05/10/20 Justicifation of Admission Dx: Justifications for Admission: Justification of Admission Dx: N/A (RAMU CORTES APRN) Attending Signature Attending Signature I have participated in the care of this patient and I have reviewed and agree with all pertinent clinical information above including history, exam, and recommendations. (SANTOSH SPENCER DO) RAMU CORTES APRN May 10, 2020 18:59 SANTOSH SPENCER DO May 10, 2020 23:17
--- NOTE | 2020-05-10 19:16 | RAD ---
Left shoulder 3 views, left humerus 2 views. HISTORY: Pain Left shoulder 3 views were taken of the left shoulder. There is calcification adjacent to the greater tuberosity suggesting calcific tendinitis. There is no fracture or dislocation or other acute osseous abnormality. Left humerus 2 views the left humerus show no evidence of a fracture. There is no dislocation at the shoulder. IMPRESSION: 1. No fracture or dislocation left shoulder. 2. Calcific tendinitis. 3. No fracture noted in the left humerus. Electronically signed by: Beck Tovar MD (05/10/2020 7:14 PM) [facility]
[2020-05-10] MEDS ORDERED: PRED50TA PO (19:50)
--- NOTE | 2020-05-11 05:58 | EKG ---
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
== END 2020-05-10 19:55 | disposition home or self-care (01) ==
LOC: ER 16:27
DX: M75.32 Calcific tendinitis of left shoulder (principal); J45.909 Unspecified asthma, uncomplicated; E11.9 Type 2 diabetes mellitus without complications; E78.00 Pure hypercholesterolemia, unspecified; I10 Essential (primary) hypertension; F17.200 Nicotine dependence, unspecified, uncomplicated; Z98.890 Other specified postprocedural states; Z88.6 Allergy status to analgesic agent
CPT/HCPCS: 73030; 73060; 93005; 99284; A4565

== ENCOUNTER 2020-07-15 13:43 | Emergency (ER) | payer MEDICAID, OTHER ==
[~2020-07-15] VITALS: Ht 152.4 cm; Wt 70.0 kg
[~2020-07-15 13:43] MED LIST changes: +PRED50TA PO
[2020-07-15 14:42] LABS: BILIRUBIN,URINE NEGATIVE (NEG); CLARITY,URINE CLEAR; COLOR,URINE YELLOW; NITRITE,URINE NEGATIVE (NEG); PROTEIN,URINE NEGATIVE (NEG-TRACE); UROBILINOGEN,URINE 0.2 mg/dL (0.2 mg/dL)
[2020-07-15] MEDS ORDERED: cefTRIAXone IM 250 MG VIAL IM ONE (14:45)
[2020-07-15] MEDS ORDERED: AZITHROMYCIN 250 MG TABLET. PO ONE (14:45)
[2020-07-15 14:52] LABS: BACTERIA,URINE 0 /HPF (0-FEW); RBC,URINE 0 /HPF (0-2); WBC,URINE RARE /HPF (0-4)
[2020-07-15 14:53] LABS: SQUAMOUS EPITHELIAL CELL,UR FEW /LPF
--- NOTE | 2020-07-15 15:24 | RAD ---
PELVIS ULTRASOUND History: Reason: R adnexal TTP and CMT; Right adnexal tenderness / Spl. Instructions: / History: Comparison: April 18, 2020. Technique: Grayscale and color Doppler imaging of the pelvis was performed using transabdominal technique. Findings: The uterus measures 13.2 x 13.6 x 10.8 cm. Large heterogeneous exophytic uterine mass with calcifications measures 9.3 x 11.1 x 8.7 cm. Central uterine mass measures 7.1 x 6.8 x 6.2 cm. The endometrial canal not well profiled on the current examination. Bilateral ovaries not identified due to positioning and overlying structures. No adnexal masses are seen. IMPRESSION: 1. Enlarged uterus with heterogeneous lesions, likely fibroids. Overall similar compared to prior allowing for differences in technique. 2. Bilateral ovaries not identified. Electronically signed by: Hakan Jiang DO (07/15/2020 3:21 PM) [id number]
[2020-07-15] MEDS ORDERED: IV NORMAL SALINE 1000ML BAG 1,000 ML IV ONE ×2 (16:15→19:00)
[2020-07-15 17:04] LABS: BASO # 0.1 x10^3/uL (0.0-0.2); BASO % 1 % (0-3); EOS # 0.4 x10^3/uL (0.0-0.7); EOS % 6 % (0-3); HEMATOCRIT 43.7 % (36.0-47.0); LYMPH # 2.7 x10^3/uL (1.0-4.8); LYMPH % 45 % (24-48); MEAN CORPUSCULAR HEMOGLOBIN 30 pg (25-35); MEAN CORPUSCULAR HGB CONC 35 g/dL (31-37); MEAN CORPUSCULAR VOLUME 86 fL (79-100); MONO # 0.3 x10^3/uL (0.0-1.1); MONO % 5 % (0-9); NEUT # 2.7 x10^3/uL (1.8-7.7); NEUT % 44 % (31-73); PLATELET COUNT 211 x10^3/uL (140-400); RED BLOOD COUNT 5.08 x10^6/uL (3.50-5.40); RED CELL DISTRIBUTION WIDTH 13.3 % (11.5-14.5); WHITE BLOOD COUNT 6.1 x10^3/uL (4.0-11.0)
[2020-07-15] MEDS ORDERED: CONTRAST GIVEN. MC PRN (17:15)
[2020-07-15] MEDS ORDERED: IOHEXOL 300 MG/ML 100ML VIAL. IV ONE (17:15)
[2020-07-15 17:49] LABS: ALBUMIN 3.6 g/dL (3.4-5.0); CALCIUM 9.5 mg/dL (8.5-10.1); GFR 68.7; POTASSIUM 4.1 mmol/L (3.5-5.1); TOTAL BILIRUBIN 0.2 mg/dL (0.2-1.0); TOTAL PROTEIN 7.1 g/dL (6.4-8.2)
--- NOTE | 2020-07-15 18:08 | PHYS DOC ---
Past Medical History Past Medical History: Asthma, Bronchitis, Diabetes-Type II, High Cholesterol, Hypertension, STD Past Surgical History: Smoking Status: Current Some Day Smoker Alcohol Use: Occasionally Drug Use: None General Adult EDM: Chief Complaint: VAGINAL PROBLEM HPI: HPI: Patient is a 60 year old AA female who presents to the emergency department with complaints of vaginal itching and irritation for the last month. She reports some irregular vaginal discharge but denies any vaginal odor or vaginal bleeding. Patient states she is concerned that she has a sexually transmitted infection. She denies any dysuria, hematuria, or difficulty voiding. The patient denies any fever, cough, sore throat, body aches, rash, abdominal pain, nausea, vomiting, diarrhea, or fatigue. She denies any known exposure to COVID- 19. The patient currently rates her pain at 8 out of 10 on the pain scale, she states that the pain is in her pelvis. She denies any alleviating or exacerbat ing factors. Review of Systems: Review of Systems: Constitutional: Denies fever or chills. [] Eyes: Denies change in visual acuity. [] HENT: Denies nasal congestion or sore throat. [] Respiratory: Denies cough or shortness of breath. [] Cardiovascular: Denies chest pain or edema. [] GI: Denies abdominal pain, nausea, vomiting, or diarrhea. [] : Denies dysuria; see HPI. [] Musculoskeletal: Denies back pain or joint pain. [] Integument: Denies rash. [] Neurologic: Denies headache, focal weakness or sensory changes. [] Lymphatic: Denies swollen glands. [] Psychiatric: Denies depression or anxiety. [] Heart Score: Risk Factors: Risk Factors: DM, Current or recent (<one month) smoker, HTN, HLP, family history of CAD, obesity. Risk Scores: Score 0 - 3: 2.5% MACE over next 6 weeks - Discharge Home Score 4 - 6: 20.3% MACE over next 6 weeks - Admit for Clinical Observation Score 7 - 10: 72.7% MACE over next 6 weeks - Early Invasive Strategies Current Medications: Current Medications Medications (Trade) Dose Ordered Sig/Palmer Start Time Stop Time Status Last Admin Dose Admin Azithromycin (Zithromax) 1,000 mg 1X ONCE 07/15/20 14:45 07/15/20 14:46 DC 07/15/20 14:59 1,000 MG Ceftriaxone Sodium (Rocephin Im) 250 mg 1X ONCE 07/15/20 14:45 07/15/20 14:46 DC 07/15/20 15:01 250 MG Info (CONTRAST GIVEN -- Rx MONITORING) 1 each PRN DAILY PRN 07/15/20 17:15 07/17/20 17:14 Iohexol (Omnipaque 300 Mg/ml) 75 ml 1X ONCE 07/15/20 17:15 07/15/20 17:16 DC Sodium Chloride 1,000 ml @ 1,000 mls/hr 1X ONCE 07/15/20 16:15 07/15/20 17:14 DC 07/15/20 17:22 1,000 MLS/HR Allergies: Allergies: Allergies Coded Allergies Type Severity Reaction Last Updated Verified ibuprofen Allergy Intermediate rash 07/15/20 Yes Physical Exam: PE: Constitutional: Well developed, well nourished, no acute distress, non-toxic appearance. HENT: Normocephalic, atraumatic, bilateral external ears normal, nose normal. Eyes: PERRLA, EOMI, conjunctiva normal, no discharge. Neck: Normal range of motion, no stridor. Cardiovascular: Heart rate regular rhythm Lungs & Thorax: Respirations even and unlabored, no retractions, no respiratory distress Pelvic Exam: [employer] present Abdomen: Soft, right lower quadrant tenderness, no rebound tenderness, no guarding External Genitalia: Normal Skin Speculum: Normal vaginal mucosa, normal cervical discharge Bimanual: Right adnexal tenderness, no adnexal masses, + CMT Skin: Warm, dry, no erythema, no rash. Back: No tenderness, no CVA tenderness Extremities: No cyanosis, ROM intact, no edema. Neurologic: Alert and oriented X 3, no focal deficits noted. Psychologic: Affect normal, judgement normal, mood normal. Current Patient Data: Labs: Laboratory Tests Test 07/15/20 14:00 07/15/20 14:20 07/15/20 16:50 07/15/20 17:19 Urine Collection Type Void Urine Color Yellow Urine Clarity Clear Urine pH 5.0 (<5.0-8.0) Urine Specific [place] >=1.030 (1.000-1.030) Urine Protein Negative mg/dL (NEG-TRACE) Urine Glucose (UA) >=1000 mg/dL (NEG) Urine Ketones (Stick) Negative mg/dL (NEG) Urine Blood Negative (NEG) Urine Nitrite Negative (NEG) Urine Bilirubin Negative (NEG) Urine Urobilinogen Dipstick 0.2 mg/dL (0.2 mg/dL) Urine Leukocyte Esterase Negative (NEG) Urine RBC 0 /HPF (0-2) Urine WBC Rare /HPF (0-4) Urine Squamous Epithelial Cells Few /LPF Urine Bacteria 0 /HPF (0-FEW) POC Urine HCG, Qualitative Hcg negative (Negative) White Blood Count 6.1 x10^3/uL (4.0-11.0) Red Blood Count 5.08 x10^6/uL (3.50-5.40) Hemoglobin 15.0 g/dL (12.0-15.5) Hematocrit 43.7 % (36.0-47.0) Mean Corpuscular Volume 86 fL (79-100) Mean Corpuscular Hemoglobin 30 pg (25-35) Mean Corpuscular Hemoglobin Concent 35 g/dL (31-37) Red Cell Distribution Width 13.3 % (11.5-14.5) Platelet Count 211 x10^3/uL (140-400) Neutrophils (%) (Auto) 44 % (31-73) Lymphocytes (%) (Auto) 45 % (24-48) Monocytes (%) (Auto) 5 % (0-9) Eosinophils (%) (Auto) 6 % (0-3) H Basophils (%) (Auto) 1 % (0-3) Neutrophils # (Auto) 2.7 x10^3/uL (1.8-7.7) Lymphocytes # (Auto) 2.7 x10^3/uL (1.0-4.8) Monocytes # (Auto) 0.3 x10^3/uL (0.0-1.1) Eosinophils # (Auto) 0.4 x10^3/uL (0.0-0.7) Basophils # (Auto) 0.1 x10^3/uL (0.0-0.2) Sodium Level 137 mmol/L (136-145) Potassium Level 4.1 mmol/L (3.5-5.1) Chloride Level 100 mmol/L (98-107) Carbon Dioxide Level 29 mmol/L (21-32) Anion Gap 8 (6-14) Blood Urea Nitrogen 13 mg/dL (7-20) Creatinine 1.0 mg/dL (0.6-1.0) Estimated GFR (Cockcroft-Gault) 68.7 BUN/Creatinine Ratio 13 (6-20) Glucose Level 605 mg/dL (70-99) *H Calcium Level 9.5 mg/dL (8.5-10.1) Total Bilirubin 0.2 mg/dL (0.2-1.0) Aspartate Amino Transferase (AST) 8 U/L (15-37) L Alanine Aminotransferase (ALT) 19 U/L (14-59) Alkaline Phosphatase 137 U/L (46-116) H Total Protein 7.1 g/dL (6.4-8.2) Albumin 3.6 g/dL (3.4-5.0) Albumin/Globulin Ratio 1.0 (1.0-1.7) Laboratory Tests 07/15/20 16:50 Laboratory Tests 07/15/20 17:19 Microbiology 07/15/20 Wet Prep - Final, Complete Vital Signs: Vital Signs Date Time Temp Pulse Resp B/P (MAP) Pulse Ox O2 Delivery O2 Flow Rate FiO2 07/15/20 17:24 67 18 138/63 (88) 97 Room Air 07/15/20 14:05 98.5 98.5 EKG: EKG: [] Radiology/Procedures: Radiology/Procedures: PROCEDURE: PELVIS ULTRASOUND PELVIS ULTRASOUND History: Reason: R adnexal TTP and CMT; Right adnexal tenderness / Spl. Instructions: / History: Comparison: April 18, 2020. Technique: Grayscale and color Doppler imaging of the pelvis was performed using transabdominal technique. Findings: The uterus measures 13.2 x 13.6 x 10.8 cm. Large heterogeneous exophytic uterine mass with calcifications measures 9.3 x 11.1 x 8.7 cm. Central uterine mass measures 7.1 x 6.8 x 6.2 cm. The endometrial canal not well profiled on the current examination. Bilateral ovaries not identified due to positioning and overlying structures. No adnexal masses are seen. IMPRESSION: 1. Enlarged uterus with heterogeneous lesions, likely fibroids. Overall similar compared to prior allowing for differences in technique. 2. Bilateral ovaries not identified.[] PROCEDURE: CT ABD PELV W/ IV CONTRST ONLY Exam: CT of abdomen and pelvis with contrast INDICATION: Right adnexal tender to palpation, ovary is not seen on recent ultrasound, right lower quadrant pain TECHNIQUE: Sequential axial images through the abdomen and pelvis obtained following the administration of 75 mL of Omni 300 IV contrast. Sagittal and coronal reformatted images were reconstructed from the axial data and reviewed. Comparisons: None FINDINGS: Heart size is normal. No pericardial effusion. Patchy areas of groundglass opacity noted in the lung bases bilaterally. No pleural effusion. Liver, spleen, pancreas, gallbladder and adrenals are unremarkable. No perinephric inflammation or hydronephrosis. No renal or ureteral calculi are identified. Bladder is decompressed not well evaluated. Enlarged uterus with numerous calcified fibroids are noted. No abnormal adnexal mass. Large and small bowel are unremarkable. Appendix is not definitively identified. No inflammatory changes in the right lower quadrant to suggest acute appendicitis. No obstruction. No free intra-abdominal air or fluid. Abdominal aorta has a normal course and caliber. Abdominal vasculature is patent. No enlarged abdominal lymph nodes are identified. No suspicious osseous lesions or acute fractures. IMPRESSION: 1. Markedly enlarged uterus with numerous calcified fibroids. No adnexal lesion to suggest enlarged ovary. 2. No inflammatory changes right lower quadrant to suggest acute appendicitis. 3. Patchy areas of groundglass opacity in the lung bases bilaterally favored to be infectious in etiology. Correlate for atypical infections including Covid Exposure: One or more of the following in the visualized dose reduction techniques were utilized for this examination: 1. Automated exposure control 2. Adjustment of the MA and/or KV according to patient size 3. Use of iterative of reconstructive technique Course & Med Decision Making: Course & Med Decision Making Pertinent Labs and Imaging studies reviewed. (See chart for details) 60-year-old female presents emergency department with complaints of vaginal irritation and itching for months she reported concerns of a sexually transmitted infection Pelvic exam revealed right adnexal tenderness and cervical motion tenderness. Wet mount and urinalysis were unremarkable, there was no yeast present in the wet mount or the urine. Patient was treated prophylactically with 250 mg of IM Rocephin, and 1 g of PO Zithromax. Patient was instructed to avoid having intercourse until the results of gonorrhea and chlamydia testing are available, patient was notified that these results would not be available for 48 hours. If one or both of these tests is positive, patient needs to refrain from intercourse for approximately 1 week following the treatment of any current partners. Pelvic ultrasound was not able to visualize ovaries. 1600-I advised the patient that I was unable to visualize her ovaries on the pelvic exam, I reassessed the patient and the patient now has pain in her right lower quadrant that is worse with palpation, no rebound tenderness. CT abdomen pelvis, CBC, CMP were ordered. 1752-patient's blood sugar 605. I ordered a total of 2 L of normal saline, and 6 units of IV insulin. 1930-patient's blood sugar came down to 366. The patient reported feeling better. Encouraged the patient to continue taking her diabetes medications and monitor her blood sugars at home. I encouraged her to follow-up with her primary care gerardo dorantes for further evaluation and treatment of hyperglycemia. Encouraged patient to go to her local health department if she is still concerned about other sexually transmitted infections that we do not test for here in the emergency department. Prescription was written for hydrocortisone cream for the patient to apply to her vaginal area for relief of itching up to 3 times a day as needed. Patient verbalized an understanding of home care, medications, follow-up, and return to ED instructions and was in agreement with the plan of care. [] Dragon Disclaimer: Dragon Disclaimer: This electronic medical record was generated, in whole or in part, using a voice recognition dictation system. Departure Departure Impression: Primary Impression: Concern about STD in female without diagnosis Additional Impressions: Hyperglycemia Vaginal itching Disposition: HOME, SELF-CARE Condition: STABLE Referrals: CHARLES BELLAMY (PCP) Patient Instructions: Hyperglycemia, [id number], Sexually Transmitted Disease, [id number] Additional Instructions: Check your blood sugars regularly and take your diabetes medications as prescribed. Recommend that you go to your local health department for comprehensive sexually transmitted disease testing. You have been treated for a suspected gonorrhea and chlamydia. Avoid having intercourse until the results of gonorrhea and chlamydia testing are available, these results will not be available for 48 hours. If one or both of these tests is positive, you need to refrain from intercourse for approximately 1 week following the treatment of any current partners. Follow-up with your primary care doctor if symptoms persist, return to ER symptoms worsen. Scripts Hydrocortisone Valerate (HYDROCORTISONE VALERATE) 15 Gm Cream..g. 1 MICHAEL TP TID PRN for ITCHING for 7 Days, #30 GM 0 Refills 1% hydrocortisone cream Prov: CARROLL SHARP APRN 07/15/20 Justicifation of Admission Dx: Justifications for Admission: Justification of Admission Dx: N/A CARROLL SHARP APRN Jul 15, 2020 18:08
[2020-07-15] MEDS ORDERED: INSULIN REGULAR 100 UNIT/ML 3ML VIAL. IV ONE (18:30)
--- NOTE | 2020-07-15 18:37 | RAD ---
Exam: CT of abdomen and pelvis with contrast INDICATION: Right adnexal tender to palpation, ovary is not seen on recent ultrasound, right lower quadrant pain TECHNIQUE: Sequential axial images through the abdomen and pelvis obtained following the administration of 75 mL of Omni 300 IV contrast. Sagittal and coronal reformatted images were reconstructed from the axial data and reviewed. Comparisons: None FINDINGS: Heart size is normal. No pericardial effusion. Patchy areas of groundglass opacity noted in the lung bases bilaterally. No pleural effusion. Liver, spleen, pancreas, gallbladder and adrenals are unremarkable. No perinephric inflammation or hydronephrosis. No renal or ureteral calculi are identified. Bladder is decompressed not well evaluated. Enlarged uterus with numerous calcified fibroids are noted. No abnormal adnexal mass. Large and small bowel are unremarkable. Appendix is not definitively identified. No inflammatory changes in the right lower quadrant to suggest acute appendicitis. No obstruction. No free intra-abdominal air or fluid. Abdominal aorta has a normal course and caliber. Abdominal vasculature is patent. No enlarged abdominal lymph nodes are identified. No suspicious osseous lesions or acute fractures. IMPRESSION: 1. Markedly enlarged uterus with numerous calcified fibroids. No adnexal lesion to suggest enlarged ovary. 2. No inflammatory changes right lower quadrant to suggest acute appendicitis. 3. Patchy areas of groundglass opacity in the lung bases bilaterally favored to be infectious in etiology. Correlate for atypical infections including Covid Exposure: One or more of the following in the visualized dose reduction techniques were utilized for this examination: 1. Automated exposure control 2. Adjustment of the MA and/or KV according to patient size 3. Use of iterative of reconstructive technique Electronically signed by: Rick Mitchell MD (07/15/2020 6:34 PM) [id number]
[2020-07-15 18:56] VITALS: BP 188/79
[2020-07-15] MEDS ORDERED: HYDR15CR20 TP (20:18)
[2020-07-18 22:07] LABS: GC PROBE Negative (Negative)
== END 2020-07-15 20:24 | disposition home or self-care (01) ==
LOC: ER 13:43
DX: Z20.2 Contact with and (suspected) exposure to infections with a predominantly sexual mode of transmission (principal); E11.65 Type 2 diabetes mellitus with hyperglycemia; L29.8 Other pruritus; J45.909 Unspecified asthma, uncomplicated; E78.00 Pure hypercholesterolemia, unspecified; I10 Essential (primary) hypertension; F17.200 Nicotine dependence, unspecified, uncomplicated; Z88.8 Allergy status to other drugs, medicaments and biological substances
CPT/HCPCS: 36415; 74177; 76856; 80053; 81001; 81025; 82962; 85025; 87491; 87591; 96361; 96372; 96374; 99285; J0696; J1815; J7030; Q0111; Q9967

== ENCOUNTER 2020-09-25 10:05 | Emergency (ER) | payer OTHER, MEDICAID ==
[~2020-09-25] VITALS: Ht 152.4 cm; Wt 77.0 kg
[~2020-09-25 10:05] MED LIST changes: +HYDR15CR20 TP
--- NOTE | 2020-09-25 10:50 | PHYS DOC ---
Past Medical History Past Medical History: Asthma, Bronchitis, Diabetes-Type II, High Cholesterol, Hypertension, STD Past Surgical History: Smoking Status: Current Some Day Smoker Alcohol Use: Occasionally Drug Use: None General Adult EDM: Chief Complaint: MULTIPLE COMPLAINTS HPI: HPI: Patient is a 60 year old female who presents with several month history of vaginal itching and burning. Patient also some lower abdominal discomfort. Patient has been seen here twice in the last 6 months for possible sexually- transmitted infection and test were negative. Patient has a little bit of discharge and feels like she may have a yeast infection although her wet prep to been negative in April and July. Patient denies any new sexual partners. Patient denies any fever, chills, vomiting or diarrhea. Patient also noted high blood pressure earlier today which caused some transient blurry vision which is since resolved. Patient denies any other symptoms of hypertensive emergency such as headache, chest pain or shortness of breath. Review of Systems: Review of Systems: Constitutional: Denies fever or chills. [] Eyes: Patient had transient visual disturbance which is resolved HENT: Denies nasal congestion or sore throat. [] Respiratory: Denies cough or shortness of breath. [] Cardiovascular: Denies chest pain or edema. [] GI: Denies abdominal pain, nausea, vomiting, bloody stools or diarrhea. [] : Denies dysuria. [] Patient has had itching and burning in her vaginal area Musculoskeletal: Denies back pain or joint pain. [] Integument: Denies rash. [] Neurologic: Denies headache, focal weakness or sensory changes. [] Endocrine: Denies polyuria or polydipsia. [] Lymphatic: Denies swollen glands. [] Psychiatric: Denies depression or anxiety. [] Heart Score: Risk Factors: Risk Factors: DM, Current or recent (<one month) smoker, HTN, HLP, family history of CAD, obesity. Risk Scores: Score 0 - 3: 2.5% MACE over next 6 weeks - Discharge Home Score 4 - 6: 20.3% MACE over next 6 weeks - Admit for Clinical Observation Score 7 - 10: 72.7% MACE over next 6 weeks - Early Invasive Strategies Current Medications: Active Scripts Active Hydrocortisone Valerate 15 Gm Cream..g. 1 [place] TP TID PRN 7 Days 1% hydrocortisone cream Prednisone 50 Mg Tablet 1 Tab PO DAILY Anti-Fungal Cream (Miconazole Nitrate) 113 Gm Cream..g. 1 [place] TP BID 7 Days Flagyl (Metronidazole) 500 Mg Tablet 1 Tab PO BID Monistat 3 (Miconazole Nitrate) 15 Gm Crm.pf.bandar 1 Appful VG QHS 3 Days Metronidazole 500 Mg Tablet 1 Tab PO BID 7 Days Tessalon Perle (Benzonatate) 100 Mg Capsule 1 Cap PO TID Azithromycin Tablet (Azithromycin) 250 Mg Tablet 1 Pkg PO UD 5 Days 2 the first day followed by 1 for days 2-5 Hydrocodone-Apap 5-325 (Hydrocodone Bit/Acetaminophen) 1 Tab Tablet 1 Tab PO PRN Q6HRS PRN 1 Days Mupirocin Ointment (Mupirocin) 22 Gm Oint...g. 1 [place] TP TID 7 Days Cephalexin 500 Mg Capsule 1 Cap PO QID 7 Days Keflex (Cephalexin) 500 Mg Capsule 1 Cap PO BID Tramadol Hcl 50 Mg Tablet 50 Mg PO Q6H PRN Reported Hydrocodone-Apap 7.5-325 (Hydrocodone Bit/Acetaminophen) 1 Each Tablet 1 Tab PO Proair Hfa Inhaler (Albuterol Sulfate) 8.5 Gm Hfa.aer.ad 1 Puff INH PRN Q6HRS PRN Ventolin Hfa Inhaler (Albuterol Sulfate) 18 Gm Hfa.aer.ad 2 Puff INH Q4HRS Lantus Solostar (Insulin Glargine,Hum.rec.anlog) 100 Unit/1 Ml Insuln.pen 36 Unit SQ HS Novolog Flexpen (Insulin Aspart) 100 Unit/1 Ml Insuln.pen 16 Unit SQ QIDACHS Pravastatin Sodium 20 Mg Tablet 20 Mg PO DAILY Loratadine 10 Mg Tablet 10 Mg PO Gabapentin 600 Mg Tablet 600 Mg PO TID Metoprolol Tartrate 50 Mg Tablet 50 Mg PO BID Metformin Hcl 1,000 Mg Tablet 1,000 Mg PO DAILYWBKFT Allergies: Allergies: Allergies Coded Allergies Type Severity Reaction Last Updated Verified ibuprofen Allergy Intermediate rash 07/15/20 Yes Physical Exam: PE: Constitutional: Well developed, well nourished, no acute distress, non-toxic appearance. [] HENT: Normocephalic, atraumatic, bilateral external ears normal, no trismus nose normal. [] Eyes: PERRLA, EOMI, conjunctiva normal, no discharge. [] Neck: Normal range of motion, no tenderness, supple, no stridor. [] Cardiovascular:Heart rate regular rhythm, peripheral pulse intact cap refill is brisk Lungs & Thorax: Bilateral breath sounds clear, no respiratory distress Abdomen: , soft, no tenderness, no masses, no pulsatile masses. [] Skin: Warm, dry, no erythema, no rash. [] Back: No tenderness, no CVA tenderness. [] Extremities: No tenderness, no cyanosis, no clubbing, ROM intact, no edema. [] Neurologic: Alert and oriented X 3, normal motor function, normal sensory function, no focal deficits noted. [] Psychologic: Affect normal, judgement normal, mood normal. [] Current Patient Data: Labs: Laboratory Tests Test 09/25/20 10:31 Urine Collection Type Unknown Urine Color Yellow Urine Clarity Clear Urine pH 5.5 Urine Specific [place] >=1.030 Urine Protein Negative mg/dL Urine Glucose (UA) >=1000 mg/dL Urine Ketones (Stick) Negative mg/dL Urine Blood Negative Urine Nitrite Negative Urine Bilirubin Negative Urine Urobilinogen Dipstick 1.0 mg/dL Urine Leukocyte Esterase Negative Urine RBC 0 /HPF Urine WBC 0 /HPF Urine Squamous Epithelial Cells Few /LPF Urine Bacteria 0 /HPF Vital Signs: Vital Signs Date Time Temp Pulse Resp B/P (MAP) Pulse Ox O2 Delivery O2 Flow Rate FiO2 09/25/20 11:15 58 14 153/80 (104) 97 Room Air 09/25/20 10:45 69 14 176/78 (110) 97 Room Air 09/25/20 10:15 98.2 70 16 181/74 (109) 96 Room Air 98.2 Vital Signs Date Time Temp Pulse Resp B/P (MAP) Pulse Ox O2 Delivery O2 Flow Rate FiO2 09/25/20 10:15 98.2 70 16 181/74 (109) 96 Room Air 98.2 EKG: EKG: [] Radiology/Procedures: Radiology/Procedures: [] Course & Med Decision Making: Course & Med Decision Making Pertinent Labs and Imaging studies reviewed. (See chart for details) [] 60-year-old female presents with some vaginal discomfort. Patient also found to have hyperglycemia with blood sugar in the 300s but no evidence of DKA. Patient will be treated for a presumptive yeast infection. GC and chlamydia has been tested as well. Patient is nontoxic and abdominal exam is nonsurgical. Dragon Disclaimer: Dragon Disclaimer: This electronic medical record was generated, in whole or in part, using a voice recognition dictation system. Departure Departure Impression: Primary Impression: Vaginitis Additional Impression: Hyperglycemia Disposition: 01 DC HOME SELF CARE/HOMELESS Condition: STABLE Referrals: CHARLES BELLAMY (PCP) 2-3 DAYS Patient Instructions: Vaginitis, [id number] Additional Instructions: EMERGENCY DEPARTMENT GENERAL DISCHARGE INSTRUCTIONS THANK YOU for coming to [facility] Emergency Department (ED) today and trusting us with your care. We trust that you had a positive experience in our Emergency Department. If you wish to speak to the department Management you can contact the natural sciences department chair at . YOUR FOLLOW UP INSTRUCTIONS ARE FOLLOWS: Do you have a private doctor? If you do not have a private doctor, please ask for a resource list of physicians or clinics that may be able to assist you with follow up care. The Emergency Physician has interpreted your x-rays. The X-ray specialist will also review them. If there is a change in the findings you will be notified in 48 hours when at all possible. A lab test or lab culture may have been done, your results will be reviewed and you will be notified if you need a change in treatment. ADDITIONAL INSTRUCTIONS AND INFORMATION Your care today has been supervised by a physician who is specially trained in emergency care. Many problems require more than one evaluation for a complete diagnosis and treatment. We recommend that you schedule your follow up appointment as recommended to ensure complete treatment of your illness or injury. If you are unable to obtain follow up care and continue to have a problem, or if your condition worsens we recommend that you return to the ED. We are not able to safely determine your condition over the phone nor are we able to give sound medical advice over the phone. For these safety reasons, if you call for medical advice we will ask you to come to the ED for further evaluation If you have any questions regarding these discharge instructions please call the ED at . SAFETY INFORMATION In the interest of safety, wellness, and injury prevention; we encourage you to wear your seatbelt, if you smoke; quit smoking, and we encourage your family to use protective helmet for bicycling and other sporting events that present an increased risk for head injury. IF YOUR SYMPTOMS WORSEN OR NEW SYMPTOMS DEVELOP, OR YOU HAVE CONCERNS ABOUT YOUR CONDITION; OR IF YOUR CONDITION WORSENS WHILE YOU ARE WAITING FOR YOUR FOLLOW UP APPOINTMENT; EITHER CONTACT YOUR PRIMARY CARE DOCTOR, THE PHYSICIAN WHOSE NAME AND NUMBER YOU WERE GIVEN, OR RETURN TO THE ED IMMEDIATELY. Scripts Fluconazole (DIFLUCAN) 150 Mg Tablet 1 TAB PO ONCE, #1 TAB 1 Refill Prov: TRINI MONTELONGO MD 09/25/20 TRINI MONTELONGO MD Sep 25, 2020 10:50
[2020-09-25 10:52] LABS: BILIRUBIN,URINE NEGATIVE (NEG); CLARITY,URINE CLEAR; COLOR,URINE YELLOW; NITRITE,URINE NEGATIVE (NEG); PH,URINE 5.5 (<5.0-8.0); PROTEIN,URINE NEGATIVE (NEG-TRACE)
[2020-09-25 11:13] LABS: BACTERIA,URINE 0 /HPF (0-FEW); RBC,URINE 0 /HPF (0-2); WBC,URINE 0 /HPF (0-4)
[2020-09-25 11:15] VITALS: BP 153/80
[2020-09-25] MEDS ORDERED: FLUC150T PO (12:42)
[2020-09-25] MEDS ORDERED: AZITHROMYCIN 250 MG TABLET. PO ONE (13:00)
[2020-09-25] MEDS ORDERED: cefTRIAXone IM 250 MG VIAL IM ONE (13:00)
[2020-09-25] MEDS ORDERED: ONDANSETRON ODT 4 MG TAB.RAPDIS. PO ONE (13:00)
== END 2020-09-25 13:05 | disposition home or self-care (01) ==
LOC: ER 10:05
DX: N76.0 Acute vaginitis (principal); B96.89 Other specified bacterial agents as the cause of diseases classified elsewhere; E11.65 Type 2 diabetes mellitus with hyperglycemia; J45.909 Unspecified asthma, uncomplicated; E78.00 Pure hypercholesterolemia, unspecified; I10 Essential (primary) hypertension; Z98.890 Other specified postprocedural states; Z87.891 Personal history of nicotine dependence; Z88.8 Allergy status to other drugs, medicaments and biological substances
CPT/HCPCS: 81001; 87491; 87591; 96372; 99283; J0696